=== PATIENT | male | born 1995 | race Caucasian/White ===

== ENCOUNTER 2023-07-06 11:24 | Emergency (ER) | payer OTHER ==
[~2023-07-06] VITALS: Ht 165.1 cm; Wt 58.5 kg
[2023-07-06 11:29] VITALS: BP 152/94; TEMP 98.2
[2023-07-06 11:53] VITALS: O2SAT 100
== END 2023-07-06 11:53 | disposition home or self-care (01) ==
LOC: ER 11:24
DX: F13.90 Sedative, hypnotic, or anxiolytic use, unspecified, uncomplicated (principal)